=== PATIENT | female | born 1970 | race Caucasian/White ===

== ENCOUNTER 2016-11-10 14:42 | Inpatient (IN) | payer OTHER ==
[~2016-11-10] VITALS: Ht 167.6 cm; Wt 76.4 kg
[~2016-11-10 14:42] MED LIST: ABIL2TAB2 PO; AMBI5TAB PO; CELE10TA PO; TRAZ100T4 PO
[2016-11-10 16:04] LABS: MEAN CORPUSCULAR HEMOGLOBIN 31.9 pg (27.0-33.0); MEAN CORPUSCULAR HGB CONC 35.2 g/dl (32.0-36.5); MEAN CORPUSCULAR VOLUME 90.7 fl (80.0-96.0); RED CELL DISTRIBUTION WIDTH 12.3 % (11.5-14.5); WHITE BLOOD COUNT 7.4 K/mm3 (4.0-10.0)
[2016-11-10 16:32] LABS: METHADONE URINE NEGATIVE (NEGATIVE)
[2016-11-10 16:43] LABS: ALBUMIN 2.9 GM/DL (3.2-5.2); ALKALINE PHOSPHATASE 62 U/L (45-117); ALT/SGPT 18 U/L (12-78); ANION GAP 5 MEQ/L (8-16); AST/SGOT 14 U/L (15-37); BILIRUBIN,DIRECT 0.1 MG/DL (0.0-0.2); BILIRUBIN,TOTAL 0.4 MG/DL (0.2-1.0); BLOOD UREA NITROGEN 11 MG/DL (7-18); CALCIUM LEVEL 8.1 MG/DL (8.5-10.1); CARBON DIOXIDE LEVEL 28 MEQ/L (21-32); CHLORIDE LEVEL 107 MEQ/L (98-107); CREATININE FOR GFR 0.82 MG/DL (0.55-1.02); GLOMERULAR FILTRATION RATE > 60.0 (>58); GLUCOSE, FASTING 96 MG/DL (70-105); POTASSIUM SERUM 4.2 MEQ/L (3.5-5.1); SODIUM LEVEL 140 MEQ/L (136-145); TOTAL PROTEIN 5.8 GM/DL (6.4-8.2)
[2016-11-10] MEDS ORDERED: ACETAMINOPHEN TAB 650MG DOSE (2X325MG) PO PRN (18:00)
[2016-11-10] MEDS ORDERED: MOM 30ML SUSPENSION UDC PO PRN (18:00)
[2016-11-10] MEDS ORDERED: traZODone 50 MG TAB PO PRN (18:00)
[2016-11-10] MEDS ORDERED: MAALOX 30 ML SUSP *UDC PO PRN (18:00)
[2016-11-10] MEDS ORDERED: CITA40TA4 PO (18:08)
[2016-11-10 20:48] VITALS: BP 26/71
[2016-11-11 06:00] VITALS: BP 99/51
[2016-11-11] MEDS: NICOTINE 21MG/24HR 1 EA TRANSDERMAL TD SCH (09:00)
[2016-11-11] MEDS ORDERED: ARIPiprazole 2 MG TAB PO SCH (09:00)
[2016-11-11] MEDS ORDERED: CitaloPRAM (CeleXA) 20 MG TAB PO SCH (09:00)
[2016-11-11 18:00] VITALS: BP 108/48
--- NOTE | 2016-11-12 03:43 | MHHPEPDOC ---
[facility] History & Physical History and Physical DATE OF ADMISSION: Nov 10, 2016 at 17:53 LEGAL STATUS AT ADMISSION: Voluntary CHIEF COMPLAINT: Pt. reports she brought herself to the ER for increasing depression and suicidal thoughts. She has increase sleep, has lost interest in what she used to enjoy, has low energy levels and social isolation. HISTORY OF THE PRESENT ILLNESS: Patient is a 45-year-old female, who has a longstanding history of depression, has been treated with multiple antidepressants and every certain amount of time they get changed because they stop working. PSYCHIATRIC REVIEW OF SYSTEMS: Affective: Helpless, hopeless, low self esteem Anxiety: High anxiety levels. Trauma: She denies traumatic experiences but reports "I was teased a lot as a child and Anabel got problems with low self esteem because of that". Psychosis: Denies auditory and visual hallucinations, denies delusional thoughts. Personally: Needs further assessment PAST PSYCHIATRIC HISTORY: Prior Psychiatric Disorder: History of depression, has been treated with differente anti depressants through the years. Outpatient Treatment: Receives outpatient psychiatric treatment. Suicidal/Self injurious: Has had suicidal ideation for the last couple of days. Psychotropic Medication History: SSRIs. ALLERGIES: Please see below. FAMILY PSYCHIATRIC HISTORY: Denies. SOCIAL HISTORY: Early Relations/development: She reports her childhood as happy, good relationship with parents and her younger sister. Sibling order: She has a younger sister.. Paternal relationships: Good relationship with both parents. Education: College education at [employer]. Occupational: . Legal: Denies. Martial: She was twice, has got twice. No children. Economic: She doesnt report economic problems. Supports: Family, parents and sister. Abuse/trauma: She says she was teased as a child by her classmates but denies physical or sexual abuse. SUBSTANCE ABUSE HISTORY: Denies. PAST MEDICAL/SURGICAL HISTORY: 1. H/O laparoscopy and D & C. VITAL SIGNS: See below MENTAL STATUS EXAMINATION: General appearance: Patient is a 45-year old female, who is alert, oriented x 3 , pleasant, cooperative with good eye contact, dressed in hospital clothes. Speech: Fluid, articulate Thought processes: Intact. Thought content: Coherent. Abstract reasoning and computation: Fair. Description of associations: Not loose. Description of abnormal or psychotic thoughts: Denies . Judgment: Fair. Insight: Limited. Orientation: Oriented x 3. Recent and remote memory: Intact. Attention span and concentration: Fair. Fund of knowledge: Adequate. Mood: "Im feeling depressed and thats why Im here." Affect: Congruent to mood. DIAGNOSES: 1. Major Depressive Disorder, recurrent, moderate to severe with suicidal ideation. ASSESSMENT: Pt. is depressed but she is very insightful of her illness and wants to feel better. She needs to be stabilized but she reported concerns because she syas her birthday is next and she would like to spend her birthday out of the hospital. PROBLEM LIST: 1. Depression 2. Risk for suicide/self harm. INITIAL TREATMENT PLAN: 1. Patient was admitted on a Voluntary status 2. Complete history was obtained. 3. With patients permission, family will be contacted and database will be expanded. 4. Patients medication regimen will be reviewed and changed accordingly. 5. Patient will be provided with protected environment. 6. Patient will be treated with individual, group, and milieu therapies. 7. Patient will receive supportive psych-education. 8. Discharge planning will commence immediately. 9. Outpatient follow-up treatment will be strongly recommended. 10. The initial treatment plan will focus initially on: * Depression. * Risk for suicide. * Substance abuse. ESTIMATED LENGTH OF STAY: 5-7 DAYS. TIME SPENT COUNSELING AND COORDINATING INITIAL CARE: 40 minutes. Medications Scheduled Aripiprazole (Abilify) 2 Mg Tab, 2 MG PO DAILY for MOOD, (Reported) Citalopram Hydrobromide (Citalopram Hydrobromide) 40 Mg Tab, 40 MG PO DAILY for DEPRESSION, (Reported) Allergies Coded Allergies: Erythromycin (Verified Allergy, Unknown, 11/10/16) [place] DAILY MD Nov 12, 2016 03:43
[2016-11-12 06:00] VITALS: BP 86/52
[2016-11-12] MEDS: SERTRALINE HCL 50 MG TAB PO SCH (07:56)
[2016-11-12] MEDS: NICOTINE 21MG/24HR 1 EA TRANSDERMAL TD SCH (09:00)
[2016-11-12 18:00] VITALS: BP 121/56
[2016-11-13 06:34] VITALS: BP 90/47
[2016-11-13] MEDS: NICOTINE 21MG/24HR 1 EA TRANSDERMAL TD SCH (08:23)
[2016-11-13] MEDS: SERTRALINE HCL 50 MG TAB PO SCH (08:24)
--- NOTE | 2016-11-13 12:11 | HPE ---
DATE OF ADMISSION: 11/10/2016 PRIMARY CARE PROVIDER: Dr. Hernandez in [place], [place]. HISTORY OF PRESENT ILLNESS: Please refer to psychiatric history and evaluation for further details on this admission. This examination and history is intended for medical issues, which may need treatment, followup or consult on this 45-year-old female. ALLERGIES: ERYTHROMYCIN and SULFA. SOCIAL HISTORY: She is . She lives in [place] with a friend. She is up here to come to mental health and then visit friends and family. Ethyl alcohol (EtOH) four nights a week. She drinks one or two drinks. Smokes 3/4 of a pack of cigarettes per day. Recreational drug use: None. PAST MEDICAL HISTORY: Human papillomavirus (HPV). PAST SURGICAL HISTORY: 1. Repair of blocked tear duct 2010. 2. Blessing teeth extraction. 3. Laparoscopy for ovarian cysts. 4. Dilation and curettage (D and C) in 1991. FAMILY HISTORY: Father with diabetes. Mother cancer. LABORATORY STUDIES: CBC is normal. Electrolytes normal. Toxicology screen is negative. HOME MEDICATIONS: - Abilify 2 mg by mouth daily - Celexa 40 mg by mouth daily EKG on file sinus rhythm at 66. REVIEW OF SYSTEMS: 10-system review was done, was unremarkable. PHYSICAL EXAMINATION: 45-year-old cooperative female in no acute distress. Height 66 inches, weight 76.1 kg, body mass index (BMI) 27.1. Blood pressure 108/48, pulse 87, respirations 16, temperature 98.5. The patient is alert and oriented times three. Pupils equal and react to light. Extraocular muscles intact. Cornea and sclerae clear. Conjunctivae were normal. No facial asymmetry. Pharynx, tongue and gums pink and moist. Tongue is midline. Neck is supple without lymphadenopathy. No thyromegaly, no goiter. Chest clear to auscultation without wheeze or retraction. Heart is regular. Abdomen is benign. Bowel sounds positive. Genitourinary/rectal: Not done. Extremities: Show equal strength, full range of motion. No cyanosis, clubbing or edema. Peripheral pulses equal and palpable bilaterally. Skin is warm and dry. IMPRESSION/PLAN: Psychiatric plan per psychiatry. No acute medical issues.
--- NOTE | 2016-11-13 12:11 | IPN ---
DATE OF SERVICE: 11/12/2016 I evaluated a 45-year-old female with history of major depressive disorder and being treated for that during a 20-year period with different antidepressant medications. This morning, she reported feeling better, responding to treatment. She stated that she felt more awake, not as sleepy. She reported her mood was improved "not a poor me, good." She says that yesterday her depression was a seven on a scale of 10 at 7/10 and today it was 5/10 and her anxiety was 1/10. She has denied suicidal ideation, homicidal ideation, psychotic thoughts. At the present time, patient is responding well to medications and she is not a danger to self or others. Will followup.
[2016-11-13 18:35] VITALS: BP 102/56
--- NOTE | 2016-11-13 22:02 | IPN ---
DATE: 11/13/2016 45-year-old female with history of major depressive disorder, being treated for 20 years or more with different antidepressants. Patient reported today she is feeling better, more animated, more active, less isolated, with more energy and sleeping less, because she initially complained of being very sleepy and very tired. She denies current suicidal or homicidal ideation and denies auditory or visual hallucinations as well as thought delusions. MENTAL STATUS EXAMINATION: The patient is alert, oriented times three, cooperative with interview with good eye contact, dressed in hospital clothes. Her speech is normal, her thought process is intact, her thought content is coherent. Her attention and concentration are good. Her memory, recent and remote, are fair. Mood is "I feel much better." Affect is congruent to mood, a little bit constricted. Her insight and judgment are improving and her impulse control is fair. ASSESSMENT: The patient has had a good response to medications and is motivated to followup and continue her treatment. Patient lives in [place] and reports that her two roommates are very supportive but the team has emphasized the importance of a support network. MURALI
[2016-11-14 06:26] VITALS: BP 103/50
[2016-11-14] MEDS: NICOTINE 21MG/24HR 1 EA TRANSDERMAL TD SCH (08:00)
[2016-11-14] MEDS: SERTRALINE HCL 50 MG TAB PO SCH (08:00)
[2016-11-14 18:23] VITALS: BP 100/52
--- NOTE | 2016-11-14 20:45 | IPN ---
DATE: 11/14/2016 45-year-old female with twenty year history of depression that is having a good response to antidepressants after coming to the emergency room with the intention of being admitted because she has been feeling increasingly depressed and suicidal. NEW TEST RESULTS: There are no new test results. MENTAL STATUS EXAMINATION: Patient is a 45-year-old female who is alert, cooperative, pleasant, dressed in hospital clothes with good eye contact. Speech is fluent and articulate. Language skills are fair. Thought process is intact. Thought content is coherent. Abstract reasoning and computation are fair. Description of associations: Not loose. Judgment: Good, improving. Insight: Improving. Orientation: Oriented times three. Recent and remote memory are intact. Attention span and concentration: Fair. Language: Fair. Fund of knowledge: Adequate. Mood: "I'm really happy, I'm feeling much better." Affect: Full range, appropriate, reactive, congruent with mood. DIAGNOSIS: Major depressive disorder, recurrent. ASSESSMENT: Patient has had a good response to medications and is looking in a brighter mood and affect. Has been attending groups, has been compliant with medications, and is engaging with other patients and staff. Patient will be discharged if pillowcase cutter can make an appointment for her to followup with her outside provider (general practitioner) because she will be receiving only a one month supply of medications and apparently in [place] she will not be able to be seen by her psychiatrist soon. The next appointment will be in 2-3 months, so she will need to see her primary care physician for him to prescribe her medications. If this is arranged, she will be discharged tomorrow, 11/15/2016. TIME SPENT: 20 minutes.
[2016-11-15 06:29] VITALS: BP 102/51
[2016-11-15] MEDS: SERTRALINE HCL 50 MG TAB PO SCH (08:07)
[2016-11-15] MEDS: NICOTINE 21MG/24HR 1 EA TRANSDERMAL TD SCH (08:08)
[2016-11-15] MEDS ORDERED: SERT50TA PO (15:00)
[2016-11-15] MEDS ORDERED: TRAZO50TA PO (15:00)
[2016-11-15] MEDS ORDERED: ARIP5TA PO (15:00)
--- NOTE | 2016-11-15 15:16 | MHDSPDOC ---
[facility] Discharge Summary Discharge Summary DATE OF ADMISSION: Nov 10, 2016 at 17:53 DATE OF DISCHARGE: DISCHARGE DIAGNOSES: 1. Major depressive disorder, moderate, recurrent REASON FOR ADMISSION: Patient drove herself to the emergency room because she has been feeling increasingly depressed and had fleeting suicidal ideation on November 11. Patient reported upon admission she has been diagnosed with depression and has been taking medications for approximately 20 years but she didn't feel that she was responding well to them. At the time of her admission she was on citalopram and Abilify. CONSULTANTS INVOLVED: None TREATMENT AND PROGRESS ON THE UNIT : Patient has been treated with different antidepressant but has continued treatment with Abilify, only this last one was increased to 2.5 mg by mouth daily at bedtime. Citalopram was discontinued and she was started on Zoloft 50 mg by mouth daily and trazodone 50 mg by mouth daily at bedtime when necessary for insomnia. Her response to treatment has been very good and she has been compliant with medications and with group attendance. Her depressive symptoms have decreased, she has brighter mood and affect. HOSPITAL COURSE: During her hospitalization. Patient was cooperative, had no behavioral problems, attended groups, interacted with peers and staff. Had a good response to medications. At this time patient denies suicidal or homicidal ideation, denies auditory or visual hallucinations and denies delusional thoughts. Patient is stable to be discharged. DISCHARGE ASSESSMENT: Patient is stable to be discharged, she is not in danger to self or others at this time. MENTAL STATUS EXAMINATION ON DISCHARGE: Patient is a 45-year old female, who is alert, pleasant, cooperative, dressed in hospital clothes with good eye contact. Speech is fluid and articulate. Language skills are fair. Thought processes including: Intact. Thought content: Coherent. Abstract reasoning, and computation: Fair. Description of associations: Not loose. Description of abnormal or psychotic thoughts: She denies having auditory or visual hallucinations, denies thought delusions and denies suicidal or homicidal ideations. Judgment: Improved. Insight: Improved. Orientation to oriented 3. Recent and remote memory: Intact. Attention span and concentration: Fair. Language: Normal. Fund of knowledge: Adequate. Mood: "I am happy". Affect: Full range, appropriate, congruent to mood. MEDICATIONS ON DISCHARGE: -Zoloft 50 mg by mouth daily for depression. -Abilify for 2.5 mg by mouth daily at bedtime for mood/depression. -And trazodone 50 mg by mouth daily at bedtime for insomnia. PLAN/FOLLOWUP ARRANGEMENTS: Patient is going to follow-up with her primary care provider in [facility] while she gets an appointment to go to her psychiatrist. Patient will continue to go to her therapist too. She is being discharged home, she will be with her family in [facility] and then she will go back to [facility], where she will be living with her 2 roommates who are very supportive of her. The amount of time spent in the coordination of care for this patient was approximately 45 minutes. Vital Signs/I&Os Vital Signs Date Time Temp Pulse Resp B/P (MAP) Pulse Ox O2 Delivery O2 Flow Rate FiO2 11/15/16 06:29 98.5 62 18 102/51 (68) 11/10/16 14:43 100 Room Air Medications Scheduled Aripiprazole (Aripiprazole) 5 Mg Tab, 2.5 MG PO DAILY for MOOD, #5 Sertraline Hcl (Sertraline HCl) 50 Mg Tab, 50 MG PO QAM for MOOD, #7 Scheduled PRN Trazodone HCl (Trazodone HCl) 50 Mg Tab, 50 MG PO QHSP PRN for INSOMNIA, #7 Allergies Coded Allergies: Erythromycin (Verified Allergy, Unknown, 11/10/16) GE[place] DAILY MD Nov 15, 2016 15:16
[2016-11-16] MEDS ORDERED: ABIL2TAB2 PO (08:35)
[2016-11-16] MEDS ORDERED: ARIP5TA PO (10:47)
== END 2016-11-15 15:38 | disposition home or self-care (01) | DRG 751 ==
LOC: M ED 16:27 → M ED INP 17:53 → M PSY 20:45
PROVIDERS: ADMIT Psychiatry & Neurology Psychiatry; ATTEND Psychiatry & Neurology Psychiatry
DX: F33.1 Major depressive disorder, recurrent, moderate (principal); F17.210 Nicotine dependence, cigarettes, uncomplicated; Z79.899 Other long term (current) drug therapy; Z88.1 Allergy status to other antibiotic agents; Z88.2 Allergy status to sulfonamides

== ENCOUNTER 2017-12-20 08:51 | Emergency (ER) | payer OTHER, MEDICAID ==
[2017-12-20 09:54] LABS: HEMATOCRIT 38.2 % (36.0-47.0); HEMOGLOBIN 12.8 g/dl (12.0-15.5); MEAN CORPUSCULAR HGB CONC 33.5 g/dl (32.0-36.5); MEAN CORPUSCULAR VOLUME 89.5 fl (80.0-96.0); PLATELET COUNT, AUTOMATED 222 10^3/uL (150-450); RED BLOOD COUNT 4.27 10^6/uL (4.00-5.40); RED CELL DISTRIBUTION WIDTH 13.2 % (11.5-14.5); WHITE BLOOD COUNT 5.7 10^3/uL (4.0-10.0)
[2017-12-20 10:18] LABS: AMPHETAMINES LEVEL URINE NEGATIVE (NEGATIVE); BARBITURATES URINE NEGATIVE (NEGATIVE); BENZODIAZEPINES URINE NEGATIVE (NEGATIVE); CANNABINOIDS URINE NEGATIVE (NEGATIVE); COCAINE METABOLITE URINE NEGATIVE (NEGATIVE); METHADONE URINE NEGATIVE (NEGATIVE); OPIATES URINE NEGATIVE (NEGATIVE); PHENCYCLIDINE URINE NEGATIVE (NEGATIVE)
[2017-12-20 10:27] LABS: ACETAMINOPHEN LEVEL < 2.0 UG/ML (10.0-30.0); ALBUMIN 3.1 GM/DL (3.2-5.2); ALBUMIN/GLOBULIN RATIO 0.91 (1.00-1.93); ALKALINE PHOSPHATASE 66 U/L (45-117); ALT/SGPT 26 U/L (12-78); ANION GAP 7 MEQ/L (8-16); AST/SGOT 17 U/L (7-37); BILIRUBIN,DIRECT 0.1 MG/DL (0.0-0.2); BILIRUBIN,TOTAL 0.3 MG/DL (0.2-1.0); BLOOD UREA NITROGEN 12 MG/DL (7-18); CALCIUM LEVEL 8.2 MG/DL (8.5-10.1); CARBON DIOXIDE LEVEL 26 MEQ/L (21-32); CHLORIDE LEVEL 109 MEQ/L (98-107); CREATININE FOR GFR 0.75 MG/DL (0.55-1.30); ETHYL ALCOHOL (ETHANOL) < 0.003 % (0.000-0.010); GLOMERULAR FILTRATION RATE > 60.0 (>58); GLUCOSE, FASTING 99 MG/DL (70-100); POTASSIUM SERUM 3.8 MEQ/L (3.5-5.1); SALICYLATE LEVEL 4.4 MG/DL (5.0-30.0); SODIUM LEVEL 142 MEQ/L (136-145); TOTAL PROTEIN 6.5 GM/DL (6.4-8.2)
== END 2017-12-20 12:33 | disposition home or self-care (01) ==
LOC: M ED 08:51
DX: F32.9 Major depressive disorder, single episode, unspecified (principal); Z72.0 Tobacco use; Z79.899 Other long term (current) drug therapy; Z88.1 Allergy status to other antibiotic agents
CPT/HCPCS: 80320

== ENCOUNTER → 2018-02-16 | Outpatient (REF) | payer OTHER, MEDICAID | LOC: M WUC 09:57 | DX: J02.9 Acute pharyngitis, unspecified (principal) ==

== ENCOUNTER 2018-03-09 11:24 | Inpatient (IN) | payer MEDICAID, OTHER ==
[2018-03-09] MEDS: ADACEL/BOOSTRIX VACCINE (DIPHTH/PERTUSS/ACELL/TETANUS)0.5ML SYR (90715) IM (12:00)
[2018-03-09 12:39] LABS: HEMATOCRIT 42.4 % (36.0-47.0); HEMOGLOBIN 14.2 g/dl (12.0-15.5); MEAN CORPUSCULAR HGB CONC 33.5 g/dl (32.0-36.5); MEAN CORPUSCULAR VOLUME 89.6 fl (80.0-96.0); PLATELET COUNT, AUTOMATED 224 10^3/uL (150-450); RED BLOOD COUNT 4.73 10^6/uL (4.00-5.40); RED CELL DISTRIBUTION WIDTH 14.6 % (11.5-14.5); WHITE BLOOD COUNT 6.6 10^3/uL (4.0-10.0)
[2018-03-09 12:47] LABS: AMPHETAMINES LEVEL URINE NEGATIVE (NEGATIVE); BARBITURATES URINE NEGATIVE (NEGATIVE); BENZODIAZEPINES URINE NEGATIVE (NEGATIVE); CANNABINOIDS URINE NEGATIVE (NEGATIVE); COCAINE METABOLITE URINE NEGATIVE (NEGATIVE); METHADONE URINE NEGATIVE (NEGATIVE); OPIATES URINE NEGATIVE (NEGATIVE); PHENCYCLIDINE URINE NEGATIVE (NEGATIVE)
[2018-03-09 12:57] LABS: CONTROL LINE HCG INT CTR LINE PRESENT; HCG, SERUM QUALITATIVE NEGATIVE (NEGATIVE)
[2018-03-09 13:18] LABS: ACETAMINOPHEN LEVEL < 2.0 UG/ML (10.0-30.0); ALBUMIN 3.4 GM/DL (3.2-5.2); ALBUMIN/GLOBULIN RATIO 0.97 (1.00-1.93); ALKALINE PHOSPHATASE 88 U/L (45-117); ALT/SGPT 34 U/L (12-78); ANION GAP 5 MEQ/L (8-16); AST/SGOT 25 U/L (7-37); BILIRUBIN,DIRECT 0.1 MG/DL (0.0-0.2); BILIRUBIN,TOTAL 0.4 MG/DL (0.2-1.0); BLOOD UREA NITROGEN 10 MG/DL (7-18); CALCIUM LEVEL 8.8 MG/DL (8.5-10.1); CARBON DIOXIDE LEVEL 29 MEQ/L (21-32); CHLORIDE LEVEL 107 MEQ/L (98-107); CREATININE FOR GFR 0.77 MG/DL (0.55-1.30); ETHYL ALCOHOL (ETHANOL) < 0.003 % (0.000-0.010); GLOMERULAR FILTRATION RATE > 60.0 (>58); GLUCOSE, FASTING 97 MG/DL (70-100); POTASSIUM SERUM 4.4 MEQ/L (3.5-5.1); SALICYLATE LEVEL 3.5 MG/DL (5.0-30.0); SODIUM LEVEL 141 MEQ/L (136-145); TOTAL PROTEIN 6.9 GM/DL (6.4-8.2)
[2018-03-09] MEDS ORDERED: traZODone 50 MG TAB PO (15:15)
[2018-03-09] MEDS ORDERED: MAALOX 30 ML SUSP *UDC PO (15:15)
[2018-03-09] MEDS ORDERED: MOM 30ML SUSPENSION UDC PO (15:15)
[2018-03-09] MEDS ORDERED: LORazepam 2 MG TAB PO (15:15)
[2018-03-09] MEDS ORDERED: ACETAMINOPHEN TAB 650MG DOSE (2X325MG) PO (15:15)
[2018-03-09] MEDS: NICOTINE 21MG/24HR 1 EA TRANSDERMAL TD (17:20)
[2018-03-09] MEDS: MULTIVITAMINS/MINERALS THERAP 1 TAB PO (17:20)
[2018-03-09] MEDS: FOLIC ACID 1 MG TAB PO (17:20)
[2018-03-09] MEDS: THIAMINE 100 MG TAB PO (20:48)
[2018-03-09] MEDS: ARIPiprazole 10 MG TAB PO (20:48)
[2018-03-09] MEDS: busPIRone 10 MG TAB PO (20:48)
[2018-03-09] MEDS: MUPIROCIN 2% OINT 22 GM TUBE TOP (21:00)
[2018-03-10] MEDS: NICOTINE 21MG/24HR 1 EA TRANSDERMAL TD (08:03)
[2018-03-10] MEDS: MUPIROCIN 2% OINT 22 GM TUBE TOP ×2 (08:05→21:03)
[2018-03-10] MEDS: SERTRALINE 100 MG TAB PO (08:06)
[2018-03-10] MEDS: THIAMINE 100 MG TAB PO ×2 (08:06→21:03)
[2018-03-10] MEDS: MULTIVITAMINS/MINERALS THERAP 1 TAB PO (08:06)
[2018-03-10] MEDS: busPIRone 10 MG TAB PO ×2 (08:06→21:03)
[2018-03-10] MEDS: FOLIC ACID 1 MG TAB PO (08:06)
[2018-03-10] MEDS: ARIPiprazole 10 MG TAB PO (21:03)
[2018-03-11] MEDS: THIAMINE 100 MG TAB PO ×2 (08:32→21:08)
[2018-03-11] MEDS: MULTIVITAMINS/MINERALS THERAP 1 TAB PO (08:32)
[2018-03-11] MEDS: busPIRone 10 MG TAB PO ×2 (08:32→21:08)
[2018-03-11] MEDS: FOLIC ACID 1 MG TAB PO (08:32)
[2018-03-11] MEDS: SERTRALINE 100 MG TAB PO (08:32)
[2018-03-11] MEDS: NICOTINE 21MG/24HR 1 EA TRANSDERMAL TD (08:33)
[2018-03-11] MEDS: MUPIROCIN 2% OINT 22 GM TUBE TOP ×2 (08:33→21:10)
[2018-03-11] MEDS: ARIPiprazole 10 MG TAB PO (21:08)
[2018-03-12] MEDS: THIAMINE 100 MG TAB PO (08:30)
[2018-03-12] MEDS: MULTIVITAMINS/MINERALS THERAP 1 TAB PO (08:30)
[2018-03-12] MEDS: FOLIC ACID 1 MG TAB PO (08:31)
[2018-03-12] MEDS: SERTRALINE 100 MG TAB PO (08:31)
[2018-03-12] MEDS: busPIRone 10 MG TAB PO (08:31)
[2018-03-12] MEDS: NICOTINE 21MG/24HR 1 EA TRANSDERMAL TD (08:31)
[2018-03-12] MEDS: MUPIROCIN 2% OINT 22 GM TUBE TOP (08:31)
== END 2018-03-12 13:00 | disposition home or self-care (01) | DRG 754 ==
LOC: M ED 11:24 → M ED INP 15:03 → M PSY 15:36
DX: F32.9 Major depressive disorder, single episode, unspecified (principal); F41.9 Anxiety disorder, unspecified; F60.3 Borderline personality disorder; Z79.899 Other long term (current) drug therapy; Z88.1 Allergy status to other antibiotic agents; F17.210 Nicotine dependence, cigarettes, uncomplicated; Z91.5 Personal history of self-harm

== ENCOUNTER → 2018-04-09 | Outpatient (CLI) | payer MEDICAID | LOC: M OUTALCOH 07:57 | DX: F10.20 Alcohol dependence, uncomplicated (principal) ==

== ENCOUNTER 2018-05-16 10:29 | Outpatient (RCR) | payer MEDICAID ==
[~2018-05-16 10:29] MED LIST changes: +ABIL10TA9 PO; +ABIL1TAB13 PO; -ABIL2TAB2 PO; +ARIP10TAB PO; +ARIP5TA PO; +BUSP10TA PO; +CITA40TA4 PO; +SERT50TA PO; +TRAZ-163 PO; -TRAZ100T4 PO; +TRAZO50TA PO; +ZOLO100T PO
== END 2018-05-20 ==
LOC: M OUTALCOH 10:29
PROVIDERS: ATTEND Psychiatry & Neurology Psychiatry
DX: F10.10 Alcohol abuse, uncomplicated (principal)

== ENCOUNTER 2018-06-18 16:00 | Outpatient (RCR) | payer MEDICAID | END 2018-06-20 | LOC: M OUTALCOH 16:00 | PROVIDERS: ATTEND Psychiatry & Neurology Psychiatry | DX: F10.10 Alcohol abuse, uncomplicated (principal) ==

== ENCOUNTER 2018-07-16 16:00 | Outpatient (RCR) | payer MEDICAID | END 2018-07-18 | LOC: M OUTALCOH 16:00 | PROVIDERS: ATTEND Psychiatry & Neurology Psychiatry | DX: F10.10 Alcohol abuse, uncomplicated (principal) ==

== ENCOUNTER 2018-08-12 14:00 | Outpatient (RCR) | payer MEDICAID ==
[2018-08-13] MEDS ORDERED: CALC600T60 PO (12:16)
[2018-08-13] MEDS ORDERED: MELO15TA28 PO (12:16)
[2018-08-13] MEDS ORDERED: BRIN10TA4 PO (12:16)
[2018-08-13] MEDS ORDERED: BUPR75TA5 PO (12:16)
[2018-08-13] MEDS ORDERED: ABIL1TAB11 PO (12:16)
[2018-08-13] MEDS ORDERED: TIZA4CAP PO (12:16)
[2018-08-13] MEDS ORDERED: VITA-176 PO (12:16)
[2018-08-13] MEDS ORDERED: ABIL10TA9 PO (12:16)
== END 2018-08-18 ==
LOC: M OUTALCOH 14:00
PROVIDERS: ATTEND Psychiatry & Neurology Psychiatry
DX: F10.10 Alcohol abuse, uncomplicated (principal)

== ENCOUNTER 2018-09-06 06:36 | Day surgery (SDC) | payer OTHER ==
[~2018-09-06] VITALS: Ht 167.6 cm; Wt 84.8 kg
[~2018-09-06 06:36] MED LIST changes: +ABIL1TAB11 PO; -ARIP10TAB PO; +ARIP1TAB PO; +ARIP1TAB6 PO; -ARIP5TA PO; +BRIN10TA4 PO; +BUPR75TA5 PO; +CALC600T60 PO; +MELO15TA28 PO; +SERT-141 PO; -SERT50TA PO; +TIZA4CAP PO; +VITA-176 PO
[2018-09-06] MEDS ORDERED: PROPOFOL 200 MG/20 ML VIAL As Ordered ONE (07:00)
[2018-09-06] MEDS ORDERED: LIDOCAINE 2% INJ 100 MG/5 ML SDV (FOR ANES.) As Ordered ONE (07:00)
[2018-09-06] MEDS ORDERED: NS 1,000 ML IV ONE (07:30)
--- NOTE | 2018-09-06 07:59 | ROOR ---
Patient Name: Lucinda Ramirez Procedure Date: 09/06/2018 7:32 AM Date of : 1970 Age: 47 Room: [facility] Gender: Female Note Status: Finalized Procedure: Colonoscopy Indications: Hematochezia Providers: Mainor Lentz MD Referring MD: MELY BROWN Requesting Provider: Medicines: Monitored Anesthesia Care Complications: No immediate complications. Procedure: Pre-Anesthesia Assessment: - Prior to the procedure, a History and Physical was performed, and patient medications and allergies were reviewed. The patient is competent. The risks and benefits of the procedure and the sedation options and risks were discussed with the patient. All questions were answered and informed consent was obtained. Patient identification and proposed procedure were verified by the physician, the nurse and the anesthesiologist in the procedure room. Mental Status Examination: alert and oriented. Airway Examination: normal oropharyngeal airway and neck mobility. Respiratory Examination: clear to auscultation. CV Examination: normal. Prophylactic Antibiotics: The patient does not require prophylactic antibiotics. Prior Anticoagulants: The patient has taken no previous anticoagulant or antiplatelet agents. ASA Grade Assessment: II - A patient with mild systemic disease. After reviewing the risks and benefits, the patient was deemed in satisfactory condition to undergo the procedure. The anesthesia plan was to use monitored anesthesia care (MAC). Immediately prior to administration of medications, the patient was re-assessed for adequacy to receive sedatives. The heart rate, respiratory rate, oxygen saturations, blood pressure, adequacy of pulmonary ventilation, and response to care were monitored throughout the procedure. The physical status of the patient was re-assessed after the procedure. The Colonoscope was introduced through the anus and advanced to the terminal ileum, with identification of the appendiceal orifice and IC valve. The colonoscopy was performed without difficulty. The patient tolerated the procedure well. The quality of the bowel preparation was adequate to identify polyps 6 mm and larger in size and fair. The terminal ileum, ileocecal valve, appendiceal orifice, and rectum were photographed. Scope insertion time was 3 minutes. Scope withdrawal time was 9 minutes. The total duration of the procedure was 12 minutes. Findings: The perianal and digital rectal examinations were normal. The terminal ileum appeared normal. A few small-mouthed diverticula were found in the sigmoid colon. There was no evidence of diverticular bleeding. Two sessile polyps were found in the rectum. The polyps were 3 to 5 mm in size. These polyps were removed with a cold snare. Resection and retrieval were complete. Verification of patient identification for the specimen was done by the physician and nurse using the patient's name, date and medical record number. Estimated blood loss was minimal. Non-bleeding external and internal hemorrhoids were found during retroflexion. The hemorrhoids were medium-sized. Impression: - Preparation of the colon was fair. - The examined portion of the ileum was normal. - Mild diverticulosis in the sigmoid colon. There was no evidence of diverticular bleeding. - Two 3 to 5 mm polyps in the rectum, removed with a cold snare. Resected and retrieved. - Non-bleeding external and internal hemorrhoids. Recommendation: - Patient has a contact number available for emergencies. The signs and symptoms of potential delayed complications were discussed with the patient. Return to normal activities tomorrow. Written discharge instructions were provided to the patient. - High fiber diet. - Continue present medications. - Await pathology results. - Repeat colonoscopy in 5-10 years for surveillance based on pathology results. - Based on the biopsy results you will receive a phone call from GI clinic in 2-3 weeks to review the pathology results AND/OR your results will be faxed to your Primary care physician. - Return to primary care physician. Mainor Lenzt MD Mainor Lentz MD 09/06/2018 7:59:07 AM Electronically signed by Mainor Lentz MD Number of Addenda: 0 Note Initiated On: 09/06/2018 7:32 AM Estimated Blood Loss: Estimated blood loss was minimal.
[2018-09-06 08:10] VITALS: BP 127/75
== END 2018-09-06 08:19 | disposition home or self-care (01) ==
LOC: M OPP 06:36
PROVIDERS: ATTEND Internal Medicine Gastroenterology
DX: K64.8 Other hemorrhoids (principal); K62.1 Rectal polyp; K57.30 Diverticulosis of large intestine without perforation or abscess without bleeding; K92.1 Melena; Z79.899 Other long term (current) drug therapy; Z87.891 Personal history of nicotine dependence; Z88.0 Allergy status to penicillin

== ENCOUNTER 2018-09-16 14:00 | Outpatient (RCR) | payer MEDICAID | END 2018-09-17 | LOC: M OUTALCOH 14:00 | PROVIDERS: ATTEND Psychiatry & Neurology Psychiatry | DX: F10.20 Alcohol dependence, uncomplicated (principal) ==

== ENCOUNTER 2018-10-07 10:00 | Outpatient (RCR) | payer MEDICAID | END 2018-10-18 | LOC: M OUTALCOH 10:00 | PROVIDERS: ATTEND Psychiatry & Neurology Psychiatry | DX: F10.20 Alcohol dependence, uncomplicated (principal) ==

== ENCOUNTER 2018-11-11 16:00 | Outpatient (RCR) | payer MEDICAID ==
[~2018-11-11 16:00] MED LIST changes: +TRAZ1TAB10 PO; -TRAZO50TA PO
== END 2018-11-17 ==
LOC: M OUTALCOH 16:00
PROVIDERS: ATTEND Psychiatry & Neurology Psychiatry
DX: F10.20 Alcohol dependence, uncomplicated (principal)

== ENCOUNTER 2018-12-05 08:00 | Outpatient (RCR) | payer MEDICAID | END 2018-12-18 | LOC: M OUTALCOH 08:00 | PROVIDERS: ATTEND Psychiatry & Neurology Psychiatry | DX: F10.20 Alcohol dependence, uncomplicated (principal) ==

== ENCOUNTER 2019-01-23 15:34 | Outpatient (RCR) | payer MEDICAID | END 2019-02-17 | LOC: M OUTALCOH 15:34 | PROVIDERS: ATTEND Psychiatry & Neurology Psychiatry | DX: F10.20 Alcohol dependence, uncomplicated (principal) ==

== ENCOUNTER 2019-02-27 16:00 | Outpatient (RCR) | payer MEDICAID | END 2019-03-20 | LOC: M OUTALCOH 16:00 | PROVIDERS: ATTEND Psychiatry & Neurology Psychiatry | DX: F10.20 Alcohol dependence, uncomplicated (principal) ==

== ENCOUNTER 2019-04-03 15:13 | Outpatient (RCR) | payer MEDICAID | END 2019-04-19 | LOC: M OUTALCOH 15:13 | PROVIDERS: ATTEND Psychiatry & Neurology Psychiatry | DX: F10.20 Alcohol dependence, uncomplicated (principal) ==

== ENCOUNTER 2019-05-22 09:38 | Outpatient (RCR) | payer MEDICAID ==
[~2019-05-22 09:38] MED LIST changes: -TRAZ-163 PO; +TRAZ-257 PO
== END 2019-06-20 ==
LOC: M OUTALCOH 09:38
PROVIDERS: ATTEND Psychiatry & Neurology Psychiatry
DX: F10.20 Alcohol dependence, uncomplicated (principal)

== ENCOUNTER 2019-06-26 09:38 | Outpatient (RCR) | payer MEDICAID | END 2019-07-19 | LOC: M OUTALCOH 09:38 | PROVIDERS: ATTEND Psychiatry & Neurology Addiction Medicine | DX: F10.20 Alcohol dependence, uncomplicated (principal) ==

== ENCOUNTER → 2020-01-12 | Outpatient (REF) | payer MEDICAID | LOC: M LAB REF 10:00 | PROVIDERS: ATTEND Physician Assistant | DX: A08.4 Viral intestinal infection, unspecified (principal) ==

== ENCOUNTER → 2022-04-03 | Outpatient (REF) ==
[~2022-04-03] MED LIST changes: -CITA40TA4 PO; +CITA40TA7 PO
== END ==
LOC: M LAB 12:11
PROVIDERS: ATTEND Nurse Practitioner Adult Health
DX: Z00.00 Encounter for general adult medical examination without abnormal findings (principal)

== ENCOUNTER 2022-07-22 17:24 | Emergency (ER) | payer MEDICAID, OTHER ==
[~2022-07-22] VITALS: Ht 167.6 cm; Wt 81.8 kg
[2022-07-22] MEDS ORDERED: ONDANSETRON 4MG 2ML VIAL IV ONE (18:35)
[2022-07-22] MEDS ORDERED: NS 1,000 ML IV ONE (18:35)
[2022-07-22 18:49] LABS: BLOOD UREA NITROGEN 21 MG/DL (9-23); CALCIUM LEVEL 8.8 MG/DL (8.5-10.1); CARBON DIOXIDE LEVEL 30 MMOL/L (20-31); CHLORIDE LEVEL 105 MMOL/L (98-107); CREATININE FOR GFR 0.89 MG/DL (0.55-1.30); GLOMERULAR FILTRATION RATE > 60.0 (>51); GLUCOSE, FASTING 94 MG/DL (60-100); POTASSIUM SERUM 4.2 MMOL/L (3.5-5.1); SODIUM LEVEL 141 MMOL/L (136-145)
[2022-07-22 19:02] LABS: BASO # 0.1 10^3/uL (0.0-0.2); BASO % 0.8 % (0.0-1.0); EOS # 0.1 10^3/uL (0.0-0.5); EOS % 1.8 % (0.0-3.0); HEMATOCRIT 37.7 % (36.0-47.0); HEMOGLOBIN 12.6 g/dl (12.0-15.5); LYMPH # 1.7 10^3/uL (1.5-5.0); LYMPH % 23.5 % (24.0-44.0); MEAN CORPUSCULAR HEMOGLOBIN 30.2 pg (27.0-33.0); MEAN CORPUSCULAR HGB CONC 33.4 g/dl (32.0-36.5); MEAN CORPUSCULAR VOLUME 90.4 fl (80.0-96.0); MONO # 0.5 10^3/uL (0.0-0.8); MONO % 6.2 % (2.0-8.0); NEUTROPHILS % 67.4 % (36.0-66.0); PLATELET COUNT, AUTOMATED 189 10^3/uL (150-450); RED BLOOD COUNT 4.17 10^6/uL (4.00-5.40); WHITE BLOOD COUNT 7.4 10^3/uL (4.0-10.0)
[2022-07-22] MEDS ORDERED: ONDA4TAB6 PO (20:15)
[2022-07-22] MEDS ORDERED: MECL1TAB31 PO (20:15)
[2022-07-22 20:17] VITALS: BP 128/59
== END 2022-07-22 20:30 | disposition home or self-care (01) ==
LOC: M ED 17:24
DX: H81.10 Benign paroxysmal vertigo, unspecified ear (principal); Z87.891 Personal history of nicotine dependence; Z88.1 Allergy status to other antibiotic agents; Z79.899 Other long term (current) drug therapy
CPT/HCPCS: 70450; 80048; 85025; 93005; 96374; 99284; J2405

== ENCOUNTER → 2022-08-25 | Outpatient (REF) | payer OTHER, MEDICAID ==
[~2022-08-25] MED LIST changes: +MECL1TAB31 PO; +ONDA4TAB6 PO
== END ==
LOC: M LAB REF 11:50
PROVIDERS: ATTEND Physician Assistant
DX: R30.0 Dysuria (principal)

== ENCOUNTER → 2023-11-19 | Outpatient (CLI) | payer OTHER ==
[~2023-11-19] MED LIST changes: +E-Z-GAS II EFFERVESCENT PACKET (SODIUM BICARB./CITRIC ACID/SIMETHICONE) As Ordered ONE; +E-Z-HD 98% w/w 340GM SUSP BTL As Ordered ONE; +E-Z-PAQUE 96% w/w SUSP 176GM BTL As Ordered ONE; +MECL-209 PO; -MECL1TAB31 PO; +ONDA-282 PO; -ONDA4TAB6 PO
== END ==
LOC: M RAD 09:59
PROVIDERS: ATTEND Internal Medicine Gastroenterology
DX: R13.10 Dysphagia, unspecified (principal)

== ENCOUNTER 2024-01-29 13:11 | Day surgery (SDC) | payer OTHER ==
[~2024-01-29] VITALS: Ht 167.6 cm; Wt 81.6 kg
[~2024-01-29 13:11] MED LIST changes: +CARV3.12 PO; +CIDE1TAB PO; -E-Z-GAS II EFFERVESCENT PACKET (SODIUM BICARB./CITRIC ACID/SIMETHICONE) As Ordered ONE; -E-Z-HD 98% w/w 340GM SUSP BTL As Ordered ONE; -E-Z-PAQUE 96% w/w SUSP 176GM BTL As Ordered ONE; +LIDOCAINE 2% 100MG/5ML SDV (FOR ANES.) As Ordered ONE; +MULTTAB24 PO; +propofoL 200 MG/20 ML VIAL As Ordered ONE
[2024-01-29] MEDS: NS 1,000 ML IV ONE (13:25)
[2024-01-29] MEDS ORDERED: fentaNYL 100 MCG/2 ML INJECTION As Ordered ONE (14:42)
[2024-01-29 15:03] VITALS: TEMP 98.8
[2024-01-29 15:21] VITALS: BP 140/65; O2SAT 100
== END 2024-01-29 15:26 | disposition home or self-care (01) ==
LOC: M OPP 13:11
PROVIDERS: ATTEND Internal Medicine Gastroenterology
DX: K44.9 Diaphragmatic hernia without obstruction or gangrene (principal); K22.2 Esophageal obstruction; K21.00 Gastro-esophageal reflux disease with esophagitis, without bleeding; R13.10 Dysphagia, unspecified; R12 Heartburn; Z79.899 Other long term (current) drug therapy; Z88.1 Allergy status to other antibiotic agents
CPT/HCPCS: 43239; 43249; 88305; J3010

== ENCOUNTER 2025-05-05 09:06 | Emergency (ER) | payer MEDICAID, OTHER ==
[~2025-05-05] VITALS: Ht 167.6 cm; Wt 88.8 kg
[~2025-05-05 09:06] MED LIST changes: -AMBI5TAB PO; +BUPR-363 PO; -BUPR75TA5 PO; -LIDOCAINE 2% 100MG/5ML SDV (FOR ANES.) As Ordered ONE; +ZOLP-532 PO; -propofoL 200 MG/20 ML VIAL As Ordered ONE
[2025-05-05] MEDS ORDERED: GABA-284 (10:11)
[2025-05-05] MEDS ORDERED: METH-1164 PO ×2 (10:13→11:27)
[2025-05-05 11:05] LABS: KETONE, URINE AUTO RFX NEGATIVE (NEGATIVE); NITRITE, URINE AUTO RFX NEGATIVE (NEGATIVE); RBC, URINE AUTO RFX 1 /HPF (0-3); SQUAM EPITHELIAL CELL UR AURFX 1 /HPF (0-6); WBC, URINE AUTO RFX 3 /HPF (0-3)
[2025-05-05 11:12] VITALS: BP 140/65; TEMP 97.9; O2SAT 100
[2025-05-05 11:14] LABS: LEUKOCYTE ESTERASE UR AUTO RFX TRACE (NEGATIVE)
[2025-05-05] MEDS ORDERED: IBUP600T42 PO (11:27)
== END 2025-05-05 11:50 | disposition home or self-care (01) ==
LOC: M ED 09:06
DX: M54.50 Low back pain, unspecified (principal); I10 Essential (primary) hypertension; F41.9 Anxiety disorder, unspecified; F31.9 Bipolar disorder, unspecified; Z88.1 Allergy status to other antibiotic agents; Z79.1 Long term (current) use of non-steroidal anti-inflammatories (NSAID); Z79.899 Other long term (current) drug therapy